=== PATIENT | female | born 1940 | race Caucasian/White ===

== ENCOUNTER → 2016-06-03 | Outpatient (CLI) | payer MEDICARE | END | disposition home or self-care (01) | LOC: Rad HDHVI 08:54 | PROVIDERS: ATTEND Internal Medicine Cardiovascular Disease | DX: I10 Essential (primary) hypertension (principal); E78.4 Other hyperlipidemia; Z91.81 History of falling | CPT/HCPCS: 93880 ==

== ENCOUNTER → 2016-06-18 | Outpatient (CLI) | payer MEDICARE | END | disposition home or self-care (01) | LOC: Rad HDHVI 11:04 | PROVIDERS: ATTEND Internal Medicine Cardiovascular Disease | DX: I10 Essential (primary) hypertension (principal); E78.5 Hyperlipidemia, unspecified; R00.2 Palpitations | CPT/HCPCS: 93306 ==

== ENCOUNTER → 2016-06-26 | Outpatient (CLI) | payer MEDICARE ==
[~2016-06-26] VITALS: Ht 30.5 cm; Wt 0.5 kg
[~2016-06-26] MED LIST: D5W 5% IV SCH; DIPYRIDAMOLE (5MG/ML) 10 ML VIAL IV ONE; DIPYRIDAMOLE IV SCH
== END | disposition home or self-care (01) ==
LOC: Rad HDHVI 10:34
PROVIDERS: ATTEND Internal Medicine Cardiovascular Disease
DX: I10 Essential (primary) hypertension (principal); E78.00 Pure hypercholesterolemia, unspecified; Z82.49 Family history of ischemic heart disease and other diseases of the circulatory system
CPT/HCPCS: 78452; 93005; 96374; 96375; A9500; J1245

== ENCOUNTER → 2017-07-06 | Outpatient (CLI) | payer MEDICARE | END | disposition home or self-care (01) | LOC: Rad HDHVI 10:39 | PROVIDERS: ATTEND Internal Medicine Cardiovascular Disease | DX: I11.0 Hypertensive heart disease with heart failure (principal); I50.33 Acute on chronic diastolic (congestive) heart failure | CPT/HCPCS: 93306; 93880 ==

== ENCOUNTER → 2017-07-21 | Outpatient (CLI) | payer MEDICARE ==
[~2017-07-21] VITALS: Ht 162.6 cm; Wt 84.4 kg
[2017-07-21 12:14] LABS: Basophils # (auto) 0.1 uL; Basophils % (auto) 1.1 % (0.0-2.0); Eosinophils # (auto) 0.2 uL; Eosinophils % (auto) 1.7 % (0.0-7.0); Hematocrit 41.8 % (36.0-46.0); Lymphocytes # (auto) 2.7 uL; Lymphocytes % (auto) 30.5 % (10.0-50.0); Mean Corpuscular Hemoglobin 31.1 pg (28.0-32.0); Mean Corpuscular Hgb Conc. 33.4 g/dL (32.0-36.0); Monocytes # (auto) 0.7 uL; Monocytes % (auto) 7.9 % (0.0-12.0); Neutrophils # (auto) 5.2 uL; Neutrophils % (auto) 58.8 % (37.0-80.0); Nucleated Red Blood Cells % 0.1 %; Platelet Count (auto) 297 10^3/uL (140-450); Red Blood Cells 4.49 10^6/uL (4.0-5.20); White Blood Cell 8.8 10^3/uL (4.4-10.8)
[2017-07-21 12:34] LABS: BUN/Creatinine Ratio 22.7; Calcium 9.5 mg/dL (8.5-10.1); Potassium 3.9 mmol/L (3.5-5.1)
== END | disposition home or self-care (01) ==
LOC: Rad HDHVI 09:14
PROVIDERS: ATTEND Internal Medicine Cardiovascular Disease
DX: D64.9 Anemia, unspecified (principal); I10 Essential (primary) hypertension; E78.00 Pure hypercholesterolemia, unspecified; E78.5 Hyperlipidemia, unspecified
CPT/HCPCS: 36415; 78452; 80048; 85025; 93017; 96374; A9500

== ENCOUNTER → 2018-07-07 | Outpatient (CLI) | payer MEDICARE | END | disposition home or self-care (01) | LOC: Rad HDHVI 09:49 | PROVIDERS: ATTEND Internal Medicine Cardiovascular Disease | DX: E87.6 Hypokalemia (principal); R07.89 Other chest pain; R00.2 Palpitations | CPT/HCPCS: 93306 ==

== ENCOUNTER → 2018-08-19 | Outpatient (CLI) | payer MEDICARE ==
[~2018-08-19] VITALS: Ht 162.6 cm; Wt 81.2 kg
[2018-08-19 15:51] LABS: Urine Blood Negative /uL (Negative); Urine Specific Gravity 1.007 (1.001-1.035)
[2018-08-19 15:54] LABS: Basophils # (auto) 0.1 uL; Basophils % (auto) 0.8 % (0.0-2.0); Eosinophils # (auto) 0.1 uL; Eosinophils % (auto) 1.9 % (0.0-7.0); Hemoglobin 14.6 g/dL (12.2-16.2); Lymphocytes # (auto) 2.2 uL; Lymphocytes % (auto) 30.1 % (10.0-50.0); Mean Corpuscular Hemoglobin 31.2 pg (28.0-32.0); Mean Corpuscular Hgb Conc. 32.5 g/dL (32.0-36.0); Mean Corpuscular Volume 96.1 fL (80.0-100.0); Monocytes # (auto) 0.6 uL; Monocytes % (auto) 8.1 % (0.0-12.0); Neutrophils # (auto) 4.3 uL; Neutrophils % (auto) 59.1 % (37.0-80.0); Nucleated Red Blood Cells % 0.8 %; Platelet Count (auto) 264 10^3/uL (140-450); Red Blood Cells 4.69 10^6/uL (4.0-5.20); Red Cell Distribution Width 14.6 % (11.8-14.3); White Blood Cell 7.3 10^3/uL (4.4-10.8)
[2018-08-19 16:04] LABS: Albumin 4.1 g/dL (3.4-5.0); Calcium 9.2 mg/dL (8.5-10.1); Potassium 4.3 mmol/L (3.5-5.1)
[2018-08-19 16:09] LABS: BUN/Creatinine Ratio 18.8; Bilirubin, Total 0.6 mg/dL (0.2-1.0); Total Protein 7.8 g/dL (6.4-8.2)
[2018-08-19 16:11] LABS: Free T4 (Free Thyroxine) 1.05 ng/dL (0.89-1.76)
== END | disposition home or self-care (01) ==
LOC: Rad HDHVI 09:20
PROVIDERS: ATTEND Internal Medicine Cardiovascular Disease
DX: N39.0 Urinary tract infection, site not specified (principal); E03.9 Hypothyroidism, unspecified; E55.9 Vitamin D deficiency, unspecified; E11.9 Type 2 diabetes mellitus without complications; D51.9 Vitamin B12 deficiency anemia, unspecified; E78.00 Pure hypercholesterolemia, unspecified; E87.6 Hypokalemia; R07.89 Other chest pain
CPT/HCPCS: 36415; 78452; 80053; 80061; 81003; 82306; 82607; 83036; 84403; 84439; 84443; 85025; 93017; 96374; A9500

== ENCOUNTER → 2019-02-10 | Outpatient (CLI) | payer MEDICARE ==
[~2019-02-10] MED LIST changes: -D5W 5% IV SCH; -DIPYRIDAMOLE (5MG/ML) 10 ML VIAL IV ONE; -DIPYRIDAMOLE IV SCH; +IOHEXOL 350 MG/ML 100ML IJ ONE
[2019-02-10 09:00] VITALS: BP 140/59
[2019-02-10 10:36] LABS: Calcium 8.8 mg/dL (8.5-10.1); Potassium 3.8 mmol/L (3.5-5.1)
[2019-02-10 11:00] VITALS: BP 155/66
--- NOTE | 2019-02-10 11:00 | NUR ---
IN TO CLINIC FOR CTA CHEST TO R/O PE. 18 GAUGE PLACED TO LEFT AC BY SAHIL FOSTER. LABS DRAWN AND SENT. UPON RETURN OF LABS PT WENT FOR CTA LUNG. TOLERATED WELL. VITALS CHECKED POST CT. LEFT AC IV REMOVED AND SITE BENIGN POST USE. DISCHARGED TO SELF CARE IN NO DISTRESS. PT TO CONTINUE DIAGNOSTIC TESTING IN ANOTHER PART OF BUILDING.
[2019-02-10 11:58] LABS: Basophils # (auto) 0.1 uL; Basophils % (auto) 1.2 % (0.0-2.0); Eosinophils # (auto) 0.2 uL; Eosinophils % (auto) 2.6 % (0.0-7.0); Hematocrit 41.1 % (36.0-46.0); Hemoglobin 13.8 g/dL (12.2-16.2); Lymphocytes # (auto) 2.2 uL; Lymphocytes % (auto) 35.8 % (10.0-50.0); Mean Corpuscular Hgb Conc. 33.6 g/dL (32.0-36.0); Mean Corpuscular Volume 95.2 fL (80.0-100.0); Monocytes # (auto) 0.7 uL; Neutrophils % (auto) 49.4 % (37.0-80.0); Nucleated Red Blood Cells % 0.1 %; Platelet Count (auto) 251 10^3/uL (140-450); Red Blood Cells 4.32 10^6/uL (4.0-5.20); Red Cell Distribution Width 14.1 % (11.8-14.3)
[2019-02-10 12:24] LABS: Albumin 3.6 g/dL (3.4-5.0); Bilirubin, Direct 0.1 mg/dL (0-0.2); Bilirubin, Total 0.5 mg/dL (0.2-1.0); Total Protein 7.4 g/dL (6.4-8.2)
== END | disposition home or self-care (01) ==
LOC: Rad HDHVI 08:30
PROVIDERS: ATTEND Internal Medicine Cardiovascular Disease
DX: K44.9 Diaphragmatic hernia without obstruction or gangrene (principal); E03.9 Hypothyroidism, unspecified; K90.9 Intestinal malabsorption, unspecified; D51.9 Vitamin B12 deficiency anemia, unspecified; I11.0 Hypertensive heart disease with heart failure; I50.33 Acute on chronic diastolic (congestive) heart failure; R00.2 Palpitations; Z79.899 Other long term (current) drug therapy
CPT/HCPCS: 36415; 71275; 80048; 80061; 80076; 82306; 82607; 83036; 84443; 85025; 93306; G0463; Q9967

== ENCOUNTER → 2020-02-28 | Outpatient (CLI) | payer MEDICARE | END | disposition home or self-care (01) | LOC: Rad HDHVI 08:01 | PROVIDERS: ATTEND Internal Medicine Cardiovascular Disease | DX: I47.1 Supraventricular tachycardia (principal); R00.2 Palpitations; E78.00 Pure hypercholesterolemia, unspecified | CPT/HCPCS: 93306 ==

== ENCOUNTER → 2020-03-05 | Outpatient (CLI) | payer MEDICARE ==
[~2020-03-05] VITALS: Ht 162.6 cm; Wt 79.8 kg
[2020-03-05 11:20] LABS: Basophils # (auto) 0.1 10 ^3/uL (0-0.2); Basophils % (auto) 1.9 % (0.0-2.0); Eosinophils # (auto) 0.1 10 ^3/uL (0-0.8); Eosinophils % (auto) 1.2 % (0.0-7.0); Hematocrit 41.6 % (36.0-46.0); Hemoglobin 13.8 g/dL (12.2-16.2); Lymphocytes # (auto) 1.9 10 ^3/uL (0.4-5.4); Lymphocytes % (auto) 32.2 % (10.0-50.0); Mean Corpuscular Hemoglobin 31.6 pg (28.0-32.0); Mean Corpuscular Hgb Conc. 33.2 g/dL (32.0-36.0); Mean Corpuscular Volume 95.2 fL (80.0-100.0); Monocytes # (auto) 0.5 10 ^3/uL (0-1.3); Monocytes % (auto) 7.8 % (0.0-12.0); Neutrophils # (auto) 3.3 10 ^3/uL (1.6-8.6); Neutrophils % (auto) 56.9 % (37.0-80.0); Nucleated Red Blood Cells % 0.1 %; Platelet Count (auto) 278 10^3/uL (140-450); Red Blood Cells 4.37 10^6/uL (4.0-5.20); Red Cell Distribution Width 13.4 % (11.8-14.3); White Blood Cell 5.8 10^3/uL (4.4-10.8)
[2020-03-05 11:32] LABS: Urine Blood Negative /uL (Negative); Urine Specific Gravity 1.006 (1.001-1.035)
[2020-03-05 11:33] LABS: Potassium 3.9 mmol/L (3.5-5.1)
[2020-03-05 11:38] LABS: Free T4 (Free Thyroxine) 0.91 ng/dL (0.89-1.76)
[2020-03-05 11:46] LABS: Albumin 3.9 g/dL (3.4-5.0); BUN/Creatinine Ratio 21.4; Bilirubin, Total 0.7 mg/dL (0.2-1.0); Calcium 9.1 mg/dL (8.5-10.1); Total Protein 7.6 g/dL (6.4-8.2)
== END | disposition home or self-care (01) ==
LOC: Rad HDHVI 08:05
PROVIDERS: ATTEND Internal Medicine Cardiovascular Disease
DX: I11.0 Hypertensive heart disease with heart failure (principal); I50.33 Acute on chronic diastolic (congestive) heart failure; E78.5 Hyperlipidemia, unspecified; E78.00 Pure hypercholesterolemia, unspecified; M06.9 Rheumatoid arthritis, unspecified; D51.3 Other dietary vitamin B12 deficiency anemia; D64.9 Anemia, unspecified; E11.9 Type 2 diabetes mellitus without complications; E55.9 Vitamin D deficiency, unspecified; R00.2 Palpitations; R53.1 Weakness; R30.0 Dysuria; Z82.49 Family history of ischemic heart disease and other diseases of the circulatory system
CPT/HCPCS: 36415; 78452; 80053; 80061; 81003; 82306; 82607; 83036; 84439; 84443; 85025; 87086; 93017; 96374; A9500

== ENCOUNTER → 2021-05-09 | Outpatient (CLI) | payer MEDICARE | END | disposition home or self-care (01) | LOC: Rad HDHVI 09:42 | PROVIDERS: ATTEND Internal Medicine Cardiovascular Disease | DX: R07.89 Other chest pain (principal); R06.02 Shortness of breath | CPT/HCPCS: 93306 ==

== ENCOUNTER → 2021-05-14 | Outpatient (CLI) | payer MEDICARE ==
[~2021-05-14] VITALS: Ht 162.6 cm; Wt 84.4 kg
[~2021-05-14] MED LIST changes: +ADENOSINE 71 MG in GIVE UN-DILUTED 0 ML IV ONE; +ADENOSINE 90 MG/30 ML INJ IV ONE; -IOHEXOL 350 MG/ML 100ML IJ ONE
== END | disposition home or self-care (01) ==
LOC: Rad HDHVI 08:45
PROVIDERS: ATTEND Internal Medicine Cardiovascular Disease
DX: I11.0 Hypertensive heart disease with heart failure (principal); I50.33 Acute on chronic diastolic (congestive) heart failure; R00.2 Palpitations; R06.02 Shortness of breath; R06.01 Orthopnea; E78.5 Hyperlipidemia, unspecified; R07.89 Other chest pain
CPT/HCPCS: 78452; 93005; 96374; 96375; A9500; J0153

== ENCOUNTER → 2022-08-17 | Outpatient (CLI) | payer MEDICARE ==
[~2022-08-17] VITALS: Ht 162.6 cm; Wt 78.0 kg
[~2022-08-17] MED LIST changes: +ADENOSINE 66 MG in GIVE UN-DILUTED 0 ML IV ONE; -ADENOSINE 71 MG in GIVE UN-DILUTED 0 ML IV ONE
== END | disposition home or self-care (01) ==
LOC: Rad HDHVI 09:20
PROVIDERS: ATTEND Internal Medicine Cardiovascular Disease
DX: I11.0 Hypertensive heart disease with heart failure (principal); I50.33 Acute on chronic diastolic (congestive) heart failure; E78.00 Pure hypercholesterolemia, unspecified; R06.02 Shortness of breath; Z82.49 Family history of ischemic heart disease and other diseases of the circulatory system
CPT/HCPCS: 78452; 93005; 96374; 96375; A9500; J0153

== ENCOUNTER → 2022-08-19 | Outpatient (CLI) | payer MEDICARE | END | disposition home or self-care (01) | LOC: Rad HDHVI 08:59 | PROVIDERS: ATTEND Internal Medicine Cardiovascular Disease | DX: I08.1 Rheumatic disorders of both mitral and tricuspid valves (principal); I11.9 Hypertensive heart disease without heart failure; E78.5 Hyperlipidemia, unspecified | CPT/HCPCS: 93306; 93880 ==

== ENCOUNTER → 2023-11-11 | Outpatient (CLI) | payer MEDICARE | END | disposition home or self-care (01) | LOC: Rad HDHVI 09:48 | PROVIDERS: ATTEND Internal Medicine Cardiovascular Disease | DX: I35.0 Nonrheumatic aortic (valve) stenosis (principal); R00.2 Palpitations; I10 Essential (primary) hypertension | CPT/HCPCS: 93306 ==

== ENCOUNTER → 2023-11-22 | Outpatient (CLI) | payer MEDICARE ==
[~2023-11-22] VITALS: Ht 162.6 cm; Wt 79.4 kg
[~2023-11-22] MED LIST changes: -ADENOSINE 66 MG in GIVE UN-DILUTED 0 ML IV ONE; +ADENOSINE 67 MG in GIVE UN-DILUTED 0 ML IV ONE
== END | disposition home or self-care (01) ==
LOC: Rad HDHVI 09:53
PROVIDERS: ATTEND Internal Medicine Cardiovascular Disease
DX: I49.3 Ventricular premature depolarization (principal); I49.1 Atrial premature depolarization; I11.0 Hypertensive heart disease with heart failure; I50.33 Acute on chronic diastolic (congestive) heart failure; R07.89 Other chest pain; E78.5 Hyperlipidemia, unspecified; Z82.49 Family history of ischemic heart disease and other diseases of the circulatory system; Z79.899 Other long term (current) drug therapy
CPT/HCPCS: 78452; 93005; 96374; 96375; A9500; J0153

== ENCOUNTER 2024-12-05 08:53 | Outpatient (CLI) | payer MEDICARE | END 2024-12-05 17:00 | disposition home or self-care (01) | LOC: Rad HDHVI 08:53 | PROVIDERS: ATTEND Internal Medicine Cardiovascular Disease | DX: I08.3 Combined rheumatic disorders of mitral, aortic and tricuspid valves (principal); I50.33 Acute on chronic diastolic (congestive) heart failure | CPT/HCPCS: 93306 ==

== ENCOUNTER 2024-12-06 08:49 | Outpatient (CLI) | payer MEDICARE ==
[~2024-12-06] VITALS: Ht 162.6 cm; Wt 77.6 kg
[2024-12-06] MEDS ORDERED: ADENOSINE 90 MG/30 ML INJ IV ONE (09:27)
[2024-12-06] MEDS ORDERED: ADENOSINE 65 MG in GIVE UN-DILUTED 0 ML IV ONE (11:15)
== END 2024-12-06 17:00 | disposition home or self-care (01) ==
LOC: Rad HDHVI 08:49
PROVIDERS: ATTEND Internal Medicine Cardiovascular Disease
DX: I44.0 Atrioventricular block, first degree (principal); I49.3 Ventricular premature depolarization; I49.1 Atrial premature depolarization; R00.1 Bradycardia, unspecified; I11.0 Hypertensive heart disease with heart failure; I50.33 Acute on chronic diastolic (congestive) heart failure; R00.2 Palpitations; R07.89 Other chest pain; E78.00 Pure hypercholesterolemia, unspecified; E10.9 Type 1 diabetes mellitus without complications; Z82.49 Family history of ischemic heart disease and other diseases of the circulatory system
CPT/HCPCS: 78452; 93017; A9500; J0153

== ENCOUNTER 2024-12-27 14:18 | Outpatient (CLI) | payer MEDICARE | END 2024-12-27 17:00 | disposition home or self-care (01) | LOC: Rad HDHVI 14:18 | PROVIDERS: ATTEND Internal Medicine Cardiovascular Disease | DX: I11.0 Hypertensive heart disease with heart failure (principal); I50.33 Acute on chronic diastolic (congestive) heart failure | CPT/HCPCS: 93880 ==